=== PATIENT | female | born 1970 | race African-American/Black ===

== ENCOUNTER 2016-10-09 03:08 | Emergency (ER) | payer BC ==
[~2016-10-09] VITALS: Ht 167.6 cm; Wt 108.0 kg
[~2016-10-09 03:08] MED LIST: AMARYL2 MG PO; CLARINEX5 MG PO; CORTISPORIN OTI10 M2 OT; FLONASE 0.05%50 MCG NASAL; FLONASE 0.05%50 MCG NS; GLUCOPHAGE500 MG; GLYBURIDE 5 MG T5 M1; HYDROCHLOROTHIA25 M1; IBUPROFEN 800800 MG PO; JANUVIA 50 MG T50 M1; LEVAQUIN 500 M500 MG PO; LISINOPRIL20 MG; NORCO 5-325 TA1 EACH PO; ONE-A-DAY WOMENS; PROMETHAZINE-C120 ML PO; VALIUM5 MG PO; VYETTA; ZETIA10 MG; ZPAK PO
[2016-10-09] MEDS ORDERED: TOPAMAX50 MG PO (03:26)
[2016-10-09] MEDS ORDERED: HYDROCODONE-APA1 TA1 PO (03:26)
[2016-10-09 03:41] LABS: ABSOLUTE NEUTROPHILS 4.6 thou/uL (1.4-8.2); BASOPHILS 0.5 % (0.0-2.0); EOSINOPHILS 2.8 % (0.0-3.0); HEMATOCRIT 41.5 % (37.0-47.0); HEMOGLOBIN 13.2 gm/dL (12.0-15.0); LYMPHOCYTES 28.2 % (24.0-44.0); MCH 25.3 pg (26.0-34.0); MCHC 31.8 % (28.0-37.0); MCV 79.6 fL (80.0-100.0); MONOCYTES 7.4 % (1.0-8.0); PLATELET COUNT 287 thou/uL (150-400); POLYS 61.1 % (36.0-66.0); RBC 5.21 mil/uL (4.20-5.00); RDW 16.6 % (10.5-14.5); WBC 7.6 thou/uL (4.0-11.0)
[2016-10-09 03:43] LABS: CALCIUM 8.9 mg/dL (8.5-10.1); CREATININE 0.7 mg/dL (0.6-1.3)
[2016-10-09 03:45] LABS: MANUAL DIFF NO
[2016-10-09] MEDS ORDERED: COMPAZINE10 MG PO (04:48)
[2016-10-09 05:01] VITALS: BP 136/88
== END 2016-10-09 05:02 | disposition home or self-care (01) ==
LOC: ER 03:08
PROVIDERS: Emergency Medicine
DX: R51 Headache (principal); R20.0 Anesthesia of skin; I10 Essential (primary) hypertension; E11.9 Type 2 diabetes mellitus without complications; J44.9 Chronic obstructive pulmonary disease, unspecified; J45.998 Other asthma; Z88.0 Allergy status to penicillin; Z90.49 Acquired absence of other specified parts of digestive tract

== ENCOUNTER 2018-08-25 11:40 | Inpatient (IN) | payer BC ==
[~2018-08-25] VITALS: Ht 165.1 cm; Wt 109.3 kg
--- NOTE | ~2018-08-25 | EKG ---
[address] [address] ELECTROCARDIOGRAM REPORT Name: YUMIKO ONOFRE Room #: 202-P ADM IN M.R.#: [id number] Admission: 08/25/18 Attend Phys: Everette Henson MD Discharge: Date of : 68 Report #: [id number] THIS REPORT FOR: //name// [facility] ED Test Date: 2018-08-25 Test Time: 11:49:29 Pat Name: YUMIKO ONOFRE Department: Room: 202 Gender: F Food Service Utility Worker: NIA : 1970 Requested By: Keya Ortega Order Number: [id number] MD: Larry Mayer Measurements Intervals [place] Rate: 96 P: 42 MD: 139 QRS: -26 QRSD: 83 T: 5 QT: 354 QTc: 448 Interpretive Statements Sinus rhythm Consider v2v3 reversal Baseline wander Compared to ECG 07/13/2014 10:00:13 Myocardial infarct finding now present Electronically Signed On 08-25-2018 23:52:29 SKATESMAN by Larry Mayer [email or web address] <ELECTRONICALLY SIGNED> By: Larry Mayer MD 08/25/18 [id number] Larry Mayer MD /EPI
--- NOTE | ~2018-08-25 | EKG ---
[address] [address] ELECTROCARDIOGRAM REPORT Name: YUMIKO ONOFRE Room #: 202-P ADM IN M.R.#: [id number] Admission: 08/25/18 Attend Phys: Everette Henson MD Discharge: Date of : 68 Report #: [id number] THIS REPORT FOR: //name// [facility] Test Date: 2018-08-26 Test Time: 14:55:27 Pat Name: YUMIKO ONOFRE Department: Room: 202 P Gender: F Lead Recreation Assistant: Yobany MINER : 1970 Requested By: Everette Henson Order Number: [id number] MD: Jefe Madrigal Measurements Intervals [place] Rate: 86 P: 52 UT: 145 QRS: -24 QRSD: 89 T: -7 QT: 365 QTc: 437 Interpretive Statements Sinus rhythm Atrial premature complex Poor R wave progression Borderline T abnormalities, inferior leads Compared to ECG 08/25/2018 11:49:29 Atrial premature complex(es) now present Electronically Signed On 08-27-2018 8:48:24 [employer] by Jefe Madrigal [email or web address] <ELECTRONICALLY SIGNED> By: Jefe Madrigal MD, [facility] 08/27/18 0848 1455 1455 Jefe Madrigal MD, [facility] /EPI
--- NOTE | ~2018-08-25 | 2DMMODE ---
[facility] [address] [email or web address] [address] 2 D/M-MODE ECHOCARDIOGRAM Name: YUMIKO ONOFRE Room #: 202-P ADM IN .R.#: [id number] Admission: 08/25/18 Attend Phys: Everette Henson MD Discharge: Date of : 68 Date of Service: 08/26/18 1316 Report #: [id number] THIS REPORT FOR: //name// APPROVED REPORT Study performed: 08/26/2018 09:51:06 EXAM: Comprehensive 2D, Doppler, and color-flow Echocardiogram Patient Location: In-Patient Room #: 202 Status: routine BSA: 2.15 HR: 81 bpm BP: 112/69 mmHg Rhythm: NSR Other Information Study Quality: Good Risk Factors: Cardiac Risk Factors: HTN, DM Indications Dyspnea on Exertion Asthma 2D Dimensions IVSd: 9.23 (7-11mm) LVOT Diam: 20.00 (18-24mm) LVDd: 50.01 mm PWd: 9.05 (7-11mm) Ascending Ao: 25.96 (22-36mm) LVDs: 34.33 (25-40mm) Aortic Root: 31.10 mm LV Single Plane 4CH: 64.22 % LV Single Plane 2CH: 62.75 % Biplane EF: 65.1 % Volumes Left Atrial Volume (Systole) Single Plane 4CH: 48.95 mL Single Plane 2CH: 49.77 mL LA ESV Index: 26.00 mL/m2 Aortic Valve AoV Peak Roge.: 1.27 m/s AO Peak Gr.: 6.44 mmHg LVOT Max P.35 mmHg LVOT Max V: 0.92 m/s [facility] [address] [place] [address] 2 D/M-MODE ECHOCARDIOGRAM Name: YUMIKO ONOFRE Room #: 202-P [facility] IN ..#: [id number] Admission: 08/25/18 Attend Phys: Everette Henson MD Discharge: Date of : 68 Date of Service: 08/26/18 1316 Report #: [id number] Vmax: 2.21 cm2 Mitral Valve E/A Ratio: 1.3 MV Decel. Time: 225.78 ms MV E Max Roge.: 0.62 m/s MV A Roge.: 0.48 m/s MV PHT: 65.48 ms IVRT: 64.59 ms TDI E/Lateral E': 5.64 E/Medial E': 7.75 Medial E' Roge.: 0.08 m/s Lateral E' Roge.: 0.11 m/s Pulmonary Valve PV Peak Roge.: 0.85 m/s PV Peak Gr.: 2.90 mmHg Pulmonary Vein P Vein S: 0.59 m/s P Vein A: 0.23 m/s P Vein D: 0.38 m/s P Vein A Dur.: 120.0 msec P Vein S/D Ratio: 1.55 Tricuspid Valve TR Peak Roge.: 1.93 m/s RAP Estimate: 7.00 mmHg TR Peak Gr.: 14.87 mmHg PA Pressure: 22.00 mmHg Left Ventricle The left ventricle is normal size. There is normal LV segmental wall motion. There is normal left ventricular wall thickness. Left ventricular systolic function is normal. The left ventricular ejection fraction is within the normal range. LVEF is 60-65%. The left ventricular diastolic function is normal. Right Ventricle The right ventricle is normal size. The right ventricular systolic function is normal. Atria The left atrium size is normal. The right atrium size is normal. Aortic Valve The aortic valve is normal in structure. No aortic regurgitation is present. There is no aortic valvular stenosis. [facility] [address] [place] [address] 2 D/M-MODE ECHOCARDIOGRAM Name: YUMIKO ONOFRE Room #: 202-P [facility] IN ..#: [id number] Admission: 08/25/18 Attend Phys: Everette Henson MD Discharge: Date of : 68 Date of Service: 08/26/18 1316 Report #: [id number] Mitral Valve The mitral valve is normal in structure. Trace mitral regurgitation. No evidence of mitral valve stenosis. Tricuspid Valve The tricuspid valve is normal in structure. Trace tricuspid regurgitation. Pulmonary artery pressure is 22 mmHg. Pulmonic Valve The pulmonary valve is normal in structure. Trace pulmonic regurgitation. Great Vessels The aortic root is normal in size. IVC is normal in size and collapses >50% with inspiration. Pericardium There is no pericardial effusion. <Conclusion> 1. Normal echocardiogram with Doppler. EF 65% 2. No pericardial effusion <ELECTRONICALLY SIGNED> By: Jefe Madrigal MD, FACC 08/26/181315 15 15 Jefe Madrigal MD, FACC /INF
[~2018-08-25 11:40] MED LIST changes: +COMPAZINE10 MG PO; +HYDROCODONE-APA1 TA1 PO; +TOPAMAX50 MG PO
[2018-08-25 11:47] VITALS: BP 144/79
[2018-08-25] MEDS ORDERED: SYMBICORT160 MCG/4. INH (11:59)
[2018-08-25] MEDS ORDERED: BYDUREON B2 MG/0.85 SUBQ (11:59)
[2018-08-25] MEDS ORDERED: JARDIANCE10 MG PO (11:59)
[2018-08-25 12:08] LABS: ABSOLUTE NEUTROPHILS 3.8 thou/uL (1.4-8.2); BASOPHILS 0.6 % (0.0-2.0); EOSINOPHILS 1.5 % (0.0-3.0); HEMATOCRIT 44.9 % (37.0-47.0); HEMOGLOBIN 14.9 gm/dL (12.0-15.0); LYMPHOCYTES 23.7 % (24.0-44.0); MCH 26.6 pg (26.0-34.0); MCHC 33.3 g/dL (28.0-37.0); MCV 79.9 fL (80.0-100.0); MONOCYTES 7.8 % (1.0-8.0); PLATELET COUNT 239 thou/uL (150-400); POLYS 66.4 % (36.0-66.0); RBC 5.62 mil/uL (4.20-5.00); RDW 15.8 % (10.5-14.5); WBC 5.8 thou/uL (4.0-11.0)
[2018-08-25 12:10] LABS: BE(vivo) -2.4 mmol/L (-2 to +3); PO2 VENOUS 78.3 mmHg (35.0-45.0)
[2018-08-25 12:19] LABS: ANION GAP 10 mmol/L (7-16); BUN 14 mg/dL (7-18); CALCIUM 9.3 mg/dL (8.5-10.1); CHLORIDE 102 mmol/L (98-107); CO2 23 mmol/L (21-32); CREATININE 0.7 mg/dL (0.6-1.0); GLUCOSE 150 mg/dL (74-106); POTASSIUM 3.6 mmol/L (3.5-5.1); SODIUM 135 mmol/L (136-145)
[2018-08-25 12:29] LABS: ALBUMIN 3.6 g/dL (3.4-5.0); SGOT 19 U/L (15-37); SGPT 35 U/L (30-65); TOTAL BILIRUBIN 0.4 mg/dL (<0.1-1.0); TOTAL PROTEIN 7.7 g/dL (6.4-8.2); TROPONIN-I <0.06 ng/mL (<0.06)
[2018-08-25 14:23] VITALS: BP 137/77
[2018-08-25 15:27] VITALS: BP 104/71
[2018-08-25 16:05] VITALS: BP 117/73
[2018-08-25 19:30] VITALS: BP 15/66
[2018-08-25 23:40] VITALS: BP 118/73
[2018-08-26 03:55] VITALS: BP 112/69
[2018-08-26 05:49] LABS: HEMATOCRIT 42.6 % (37.0-47.0); HEMOGLOBIN 13.7 gm/dL (12.0-15.0); MCH 25.7 pg (26.0-34.0); MCHC 32.1 g/dL (28.0-37.0); MCV 79.9 fL (80.0-100.0); RBC 5.33 mil/uL (4.20-5.00); RDW 15.8 % (10.5-14.5); WBC 8.2 thou/uL (4.0-11.0)
[2018-08-26 06:00] LABS: CREATININE 0.6 mg/dL (0.6-1.0); POTASSIUM 4.3 mmol/L (3.5-5.1)
[2018-08-26 10:00] VITALS: BP 131/79
[2018-08-26 12:20] VITALS: BP 130/78
[2018-08-26 20:14] VITALS: BP 122/72
[2018-08-27 05:23] VITALS: BP 109/70
[2018-08-27 07:20] VITALS: BP 102/73
[2018-08-27 12:00] VITALS: BP 106/71
[2018-08-27 15:15] VITALS: BP 109/63
[2018-08-27 19:51] VITALS: BP 108/70
[2018-08-28 03:21] LABS: ABSOLUTE NEUTROPHILS 4.5 thou/uL (1.4-8.2); BASOPHILS 0.7 % (0.0-2.0); EOSINOPHILS 0.8 % (0.0-3.0); HEMATOCRIT 43.6 % (37.0-47.0); HEMOGLOBIN 14.4 gm/dL (12.0-15.0); LYMPHOCYTES 34.3 % (24.0-44.0); MCH 26.7 pg (26.0-34.0); MCHC 33.1 g/dL (28.0-37.0); MCV 80.7 fL (80.0-100.0); MONOCYTES 7.6 % (1.0-8.0); PLATELET COUNT 255 thou/uL (150-400); POLYS 56.6 % (36.0-66.0); RBC 5.41 mil/uL (4.20-5.00); RDW 16.3 % (10.5-14.5)
[2018-08-28 03:45] LABS: CALCIUM 9.3 mg/dL (8.5-10.1); CREATININE 0.7 mg/dL (0.6-1.0); POTASSIUM 4.1 mmol/L (3.5-5.1)
[2018-08-28 04:46] VITALS: BP 109/68
[2018-08-28 08:04] VITALS: BP 109/81
[2018-08-28] MEDS ORDERED: COLACE100 MG PO (10:44)
[2018-08-28] MEDS ORDERED: DULCOLAX5 MG PO (10:44)
[2018-08-28] MEDS ORDERED: MIRALAX17 GM PO (10:46)
[2018-08-28] MEDS ORDERED: MILK OF MA2400 MG/10 PO (10:46)
[2018-08-28] MEDS ORDERED: PREDNISONE 10 M10 MG PO (10:49)
[2018-08-28 11:54] VITALS: BP 113/65
[2018-08-28 13:10] VITALS: BP 113/65
== END 2018-08-28 13:50 | disposition home or self-care (01) | DRG 871 ==
LOC: ER 11:40 → 2N 14:22 → EROBS 14:22 → 2N 15:27 → ENTRNSPT 08-28 13:39 → EDTRNSPTSTS 08-28 13:41 → 2N 08-28 13:50
PROVIDERS: Hospitalist; Student in an Organized Health Care Education/Training Program
DX: A41.9 Sepsis, unspecified organism (principal); J96.01 Acute respiratory failure with hypoxia; J20.9 Acute bronchitis, unspecified; I10 Essential (primary) hypertension; E11.9 Type 2 diabetes mellitus without complications; K58.1 Irritable bowel syndrome with constipation; Z90.49 Acquired absence of other specified parts of digestive tract; Z79.84 Long term (current) use of oral hypoglycemic drugs; Z79.899 Other long term (current) drug therapy; Z88.0 Allergy status to penicillin
CPT/HCPCS: 10081